=== PATIENT | male | born 1950 | race Caucasian/White ===

== ENCOUNTER 2020-08-05 09:17 | Emergency (ER) | payer MEDICARE, BC, SELFPAY ==
--- NOTE | 2020-08-05 09:23 | ED.SKABFB ---
HPI - Skin/Abscess/Foreign Bdy General Chief complaint: Skin/Abscess/Foreign Body Stated complaint: rash Time Seen by Provider: 08/05/20 09:24 Source: patient and RN notes reviewed History of Present Illness HPI narrative: Patient is a 70-year-old male who presents the urgent care with complaints of a diffuse rash. Patient states that it started Friday after he slept in a hotel. Patient states that he is typically gets this type of reaction from detergents . States that he has to use extra sensitive detergent. Patient states it is very itchy and was turning into welts last night . Patient states that he took a Benadryl this morning which did seem to calm down the itchiness and the welting. Denies of any shortness of breath or difficulty swallowing. No other acute complaints. No acute distress noted. Patient aware of the plan of care. Some parts of this dictation were generated by voice recognition software and may contain typographical and/or grammatical inaccuracies. Related Data Allergies Allergy/AdvReac Type Severity Reaction Status Date / Time Tetracyclines Allergy Rash Verified 08/05/20 09:34 Review of Systems Review of Systems: Narrative: CONSTITUTIONAL: Denies fever, chills, or sweats. EYES: Denies visual changes, redness, or discharge. ENT: Denies rhinorrhea, congestion, sore throat, or otalgia. CARDIOVASCULAR: Denies chest pain, palpitations, or edema. RESPIRATORY: Denies cough or dyspnea. GASTROINTESTINAL: Denies abdominal pain, nausea, vomiting, or diarrhea. GENITOURINARY: Denies dysuria or hematuria. SKIN: Reports of allover red itchy rash MUSCULOSKELETAL: Denies back pain, joint pain, or myalgia. NEUROLOGIC: Denies headache, numbness, or weakness. All other systems reviewed are negative, except as documented in HPI. PMFSH Comments At the time of my signature, I reviewed and agree with the nursing past medical, surgical, social, and family history. There is no relevant family history pertinent to the patient complaint. Exam Narrative: Exam Narrative: GENERAL: This is a well-nourished, well-developed patient, in no apparent distress. HEAD: normocephalic, atraumatic. EYES: PERRL. Sclera clear/white. Vision is grossly intact. EARS: External ears normal NOSE: External nose normal with no obvious nasal discharge, nares without redness, no rhinorrhea. THROAT: Mucous membranes moist NECK: Neck supple, non-tender without lymphadenopathy, masses or thyromegaly. CARDIOVASCULAR: Regular rate and rhythm without murmurs, gallops, or rubs. RESPIRATORY: Clear to auscultation. Breath sounds equal bilaterally. No wheezes, rales, or rhonchi. SKIN: Diffuse erythemic dermatitis noted to bilateral arms, low back, abdomen and bilateral lower legs NEURO: awake, alert, and oriented to person, place and time. There were no obvious focal neurologic abnormalities. EXTREMITIES: No clubbing, cyanosis, or edema. Course Vital Signs Vital signs: Vital Signs Temperature 98 F 08/05/20 09:27 Pulse Rate 96 08/05/20 09:27 Respiratory Rate 16 08/05/20 09:27 Blood Pressure 165/100 H 08/05/20 09:27 Pulse Oximetry 98 08/05/20 09:27 Temperature 98 F 08/05/20 09:27 Pulse Rate 96 08/05/20 09:27 Respiratory Rate 16 08/05/20 09:27 Blood Pressure 165/100 H 08/05/20 09:27 Pulse Oximetry 98 08/05/20 09:27 Reviewed-patient is informed that they may have pre-hypertension or hypertension based on a blood pressure reading in the department. I recommend the patient call the primary care provider listed on their discharge instructions or a physician of their choice this week to arrange follow-up for further evaluation of possible pre-hypertension or hypertension. MDM - Skin/Abscess/Foreign Bdy MDM Narrative Medical decision making narrative: Advised the patient to complete the steroid regimen as prescribed. Make sure to eat and drink with your medication. Continue to use an [id number] antihistamine such as Benadry
[2020-08-05 09:27] VITALS: BP 165/100; PULSE 96; RESP 16; TEMP 36.6; O2SAT 98
== END 2020-08-05 09:45 | disposition home or self-care (01) ==
PROVIDERS: Emergency Provider Nurse Practitioner Family
DX: L25.9 Unspecified contact dermatitis, unspecified cause (principal); E78.00 Pure hypercholesterolemia, unspecified; I10 Essential (primary) hypertension
CPT/HCPCS: 99213; G0463